=== PATIENT | male | born 1955 | race Caucasian/White ===

== ENCOUNTER → 2024-03-07 07:16 | Outpatient (REF) | payer MEDICARE, SELFPAY | LOC: RAD 07:16 | PROVIDERS: ATTENDING PHYSICIAN Physician Assistant Medical | DX: Z87.891 Personal history of nicotine dependence (principal) | CPT/HCPCS: 76770 ==

== ENCOUNTER → 2024-05-13 07:25 | Outpatient (REF) | payer MEDICARE, SELFPAY | LOC: MRI 3T 07:25 | PROVIDERS: ATTENDING PHYSICIAN Urology; FAMILY PHYSICIAN Physician Assistant Medical | DX: C61 Malignant neoplasm of prostate (principal) | CPT/HCPCS: 72197; A9575 ==